=== PATIENT | male | born 1940 ===

== ENCOUNTER 2016-07-25 14:04 | Outpatient (CLI) | payer MEDICARE | END 2016-07-25 14:05 | disposition home or self-care (01) | LOC: NC 14:04 | PROVIDERS: ATTEND Nurse Practitioner Family | DX: E11.8 Type 2 diabetes mellitus with unspecified complications (principal); Z71.3 Dietary counseling and surveillance; I25.10 Atherosclerotic heart disease of native coronary artery without angina pectoris; I10 Essential (primary) hypertension; E78.5 Hyperlipidemia, unspecified; Z79.4 Long term (current) use of insulin; Z87.891 Personal history of nicotine dependence; Z68.28 Body mass index [BMI] 28.0-28.9, adult ==

== ENCOUNTER 2016-08-01 14:34 | Outpatient (CLI) | payer MEDICARE | END 2016-08-01 14:35 | disposition home or self-care (01) | LOC: NC 14:34 | PROVIDERS: ATTEND Nurse Practitioner Family | DX: E11.9 Type 2 diabetes mellitus without complications (principal); Z71.3 Dietary counseling and surveillance ==